=== PATIENT | male | born 2000 | race Hispanic/Latino ===

== ENCOUNTER 2022-05-23 04:17 | Inpatient (IN) | payer OTHER, SELFPAY ==
[2022-05-23 05:17] LABS: ALT (SGPT) 78 U/L (8-55); AST (SGOT) 120 U/L (5-34); Albumin 4.8 g/dL (3.5-5.0); Alkaline Phosphatase 110 U/L (40-110); Anion Gap 19 mmol/L (10-20); BUN (Urea Nitrogen) 11 mg/dL (8.9-20.6); Bilirubin, Total 0.4 mg/dL (0.2-1.2); Calc. Creatinine Clearance 0 mL/min (70-130); Calcium 8.8 mg/dL (7.8-10.44); Carbon Dioxide 16 mmol/L (22-29); Chloride 109 mmol/L (98-107); Estimated GFR 124; Globulin 3.4 g/dL (2.4-3.5); Glucose 132 mg/dL (70-105); Potassium 3.4 mmol/L (3.5-5.1); Protein, Total 8.2 g/dL (6.0-8.3); Sodium 141 mmol/L (136-145)
[2022-05-23 05:18] LABS: Acetaminophen Less than 10.0 mcg/mL (10.0-30.0); Alcohol 142 mg/dL (Less than 10); Salicylate Less than 8.0 mg/dL (15.0-30.0)
[2022-05-23 05:29] LABS: INR-International Normal Ratio 1.2
[2022-05-23 05:30] LABS: PTT 27.1 sec (22.9-36.1)
[2022-05-23 05:31] LABS: Band 22 % (5-11); Eosinophils 1 % (0-10); Hemoglobin 16.6 g/dL (14.0-18.0); Lymphocytes 14 % (21-51); MDiff Complete? YES; Mean Corpuscular Hemoglobin 32.3 pg (27.0-31.0); Mean Corpuscular Volume 92.3 fL (78.0-98.0); Mean Platelet Volume 6.7 fL (7.4-10.4); Monocytes 5 % (0-10); Neutrophil 57 % (42-75); Platelet Count 407 thou/uL (130-400); RBC Distribution Width 11.9 % (11.5-14.5); Red Blood Cell (RBC) Count 5.15 mill/uL (4.70-6.10); White Blood Cell (WBC) Count 20.6 thou/uL (4.8-10.8)
[2022-05-23] MEDS ORDERED: Dextrose 50% Abboject 50 ML SYRINGE SLOW IVP PRN (05:33)
[2022-05-23] MEDS ORDERED: Ondansetron PF 4 MG/2 ML Vial IVP PRN (05:33)
[2022-05-23] MEDS ORDERED: Ondansetron ODT 4 MG TAB PO PRN (05:33)
[2022-05-23] MEDS ORDERED: Dextrose 5% in Water 1,000 ML IV PRN (05:33)
[2022-05-23] MEDS ORDERED: hydrALAZINE 20 MG/ML VIAL SLOW IVP PRN (05:37)
[2022-05-23] MEDS ORDERED: Ventilator Sedation Protocol 1 EACH FS SCH (05:45)
[2022-05-23] MEDS ORDERED: Midazolam HCl 2 mg/2 ml Vial SLOW IVP PRN (05:48)
[2022-05-23] MEDS ORDERED: Propofol BOLUS 1,000 MG/100 ML VIAL IV PRN (06:00)
[2022-05-23] MEDS ORDERED: Morphine 4 MG/ML VIAL SLOW IVP PRN (06:00)
[2022-05-23] MEDS ORDERED: Propofol 1,000 MG/100 ML VIAL IV PRN (06:00)
[2022-05-23] MEDS ORDERED: Fentanyl BOLUS 250 ML IVPB PRN (06:00)
[2022-05-23] MEDS ORDERED: DISCONTINUE PREVIOUS NARCOTIC PAIN MEDICATIONS AND BENZODIAZEPINES FS SCH (06:00)
[2022-05-23] MEDS ORDERED: Fentanyl CADD 100 ML IV SCH (06:00)
[2022-05-23 06:06] LABS: Magnesium 1.9 mg/dL (1.6-2.6); Phosphorus 3.7 mg/dL (2.3-4.7)
[2022-05-23 06:25] LABS: Actual Bicarbonate (HCO3a) 16.2 mEq/L (22-28); Analyzer IN Cardio ER; CO2 Tension 37.3 mmHg (35.0-45.0); Calcium, Ionized (arterial) 1.16 mmol/L (1.12-1.30); Hemoglobin (Hb) 15.7 g/dL (14.0-18.0); O2 Tension (PaO2), arterial 423.6 mmHg (80.0-100.0); Potassium - ABG Lab 3.59 mmol/L (3.70-5.30); Puncture Site LRA; pH, Arterial 7.26 (7.35-7.45)
[2022-05-23 06:26] LABS: SARS-CoV-2 NAA Rapid Test Not Detected (NotDetected)
[2022-05-23 06:26] LABS: ALV-art Gradient 242.775 mmHg (0-20)
[2022-05-23] MEDS ORDERED: Fentanyl 100 MCG/2 ML VIAL ONE (06:41)
[2022-05-23 07:59] VITALS: BMI 22.3
[2022-05-23 08:00] LABS: Bacteria/HPF None Seen HPF (None Seen); Bilirubin Negative (Negative); Blood, Urine 2+ (Negative); Clarity Clear (Clear); Glucose, Urine (Dipstick) Normal (Negative); Ketone, Urine Negative (Negative); Leukocyte Negative Leu/uL (Negative); Nitrite Negative (Negative); Protein, Urine (Dipstick) Negative (Neg-Trace); RBC/HPF 0-3 HPF (0-3); Squamous Epithelial 0-3 HPF (0-3); Urobilinogen Normal mg/dL (Less than 2); WBC/HPF 0-3 HPF (0-3); pH, Urine 5.5 (5.0-9.0)
[2022-05-23 08:01] LABS: Specific Gravity, Urine 1.053 (1.002-1.036)
[2022-05-23 08:07] LABS: Amphetamine Not Detected (NotDetected); Barbiturates Screen Not Detected (NotDetected); Benzodiazepine Screen Not Detected (NotDetected); Cocaine Metabolite Screen Not Detected (NotDetected); Methadone Not Detected (NotDetected); Methamphetamine Not Detected (NotDetected); Opiate Screen Not Detected (NotDetected); Oxycodone Screen Not Detected (NotDetected); Phencyclidine (PCP) Not Detected (NotDetected); THC/Cannabinoid Screen Not Detected (NotDetected); Tricyclic Screen Not Detected (NotDetected)
[2022-05-23] MEDS: Famotidine/PF 20 mg/2ml Vial SLOW IVP SCH ×2 (08:14→20:04)
[2022-05-23] MEDS: Sodium Chloride 0.9% 1,000 ML IV SCH ×2 (08:16→17:02)
[2022-05-23] MEDS ORDERED: Iopamidol-370 76% 500 ML 1 ML ONE (09:43)
[2022-05-23] MEDS ORDERED: Cyclobenzaprine 10 MG TAB PO PRN (09:49)
[2022-05-23] MEDS ORDERED: Acetaminophen/Codeine 30-300mg Tablet PO PRN (09:50)
[2022-05-23] MEDS: Acetaminophen 325 MG TAB PO SCH ×2 (13:04→18:23)
[2022-05-23] MEDS: Senokot S 8.6-50 MG TAB PO SCH (20:01)
[2022-05-24] MEDS: Acetaminophen 325 MG TAB PO SCH ×4 (00:26→18:14)
[2022-05-24 05:59] LABS: #Basophils 0.1 thou/uL (0.0-0.2); #Lymphocytes 2.4 thou/uL (1.20-3.40); #Monocytes 1.2 thou/uL (0.11-0.59); #Neutrophils 8.3 thou/uL (1.40-6.50); %Basophils 0.6 % (0.0-1.0); %Eosinophils 0.3 % (0.0-10.0); %Monocytes 10.1 % (0.0-10.0); %Neutrophils 68.9 % (42.0-75.0); Hemoglobin 14.5 g/dL (14.0-18.0); Mean Corpuscular HGB CONC 34.9 g/dL (32.0-36.0); Mean Corpuscular Hemoglobin 33.1 pg (27.0-31.0); Mean Corpuscular Volume 94.9 fL (78.0-98.0); Mean Platelet Volume 6.6 fL (7.4-10.4); Platelet Count 293 thou/uL (130-400); RBC Distribution Width 11.6 % (11.5-14.5); Red Blood Cell (RBC) Count 4.39 mill/uL (4.70-6.10); White Blood Cell (WBC) Count 12.1 thou/uL (4.8-10.8)
[2022-05-24 06:24] LABS: Anion Gap 14 mmol/L (10-20); BUN (Urea Nitrogen) 12 mg/dL (8.9-20.6); Calc. Creatinine Clearance 142 mL/min (70-130); Calcium 8.8 mg/dL (7.8-10.44); Carbon Dioxide 22 mmol/L (22-29); Chloride 106 mmol/L (98-107); Estimated GFR 129; Glucose 107 mg/dL (70-105); Potassium 3.9 mmol/L (3.5-5.1); Sodium 138 mmol/L (136-145)
[2022-05-24] MEDS ORDERED: Sodium Phosphate 30 MMOL in Sodium Chloride 0.9% 250 ML 250 ML IVPB SCH (09:00)
[2022-05-24] MEDS: Acetaminophen/Codeine 30-300mg Tablet PO PRN ×2 (09:07→20:13)
[2022-05-24] MEDS: Famotidine/PF 20 mg/2ml Vial SLOW IVP SCH (09:07)
[2022-05-24] MEDS: Polyethylene Glycol 3350 17 GM Packet PO SCH (09:08)
[2022-05-24] MEDS: Senokot S 8.6-50 MG TAB PO SCH ×2 (09:08→20:14)
[2022-05-24] MEDS: Famotidine 20 MG TAB PO SCH (20:13)
[2022-05-25] MEDS: Acetaminophen 325 MG TAB PO SCH ×3 (00:37→13:12)
[2022-05-25 06:20] LABS: #Basophils 0.1 thou/uL (0.0-0.2); #Eosinphils 0.1 thou/uL (0.0-0.7); #Lymphocytes 2.4 thou/uL (1.20-3.40); #Monocytes 0.8 thou/uL (0.11-0.59); #Neutrophils 5.9 thou/uL (1.40-6.50); %Basophils 0.6 % (0.0-1.0); %Eosinophils 1.2 % (0.0-10.0); %Lymphocytes 25.7 % (21.0-51.0); %Monocytes 8.2 % (0.0-10.0); %Neutrophils 64.3 % (42.0-75.0); Mean Corpuscular HGB CONC 34.7 g/dL (32.0-36.0); Mean Corpuscular Hemoglobin 32.6 pg (27.0-31.0); Mean Corpuscular Volume 93.9 fL (78.0-98.0); Mean Platelet Volume 6.7 fL (7.4-10.4); Platelet Count 285 thou/uL (130-400); RBC Distribution Width 11.6 % (11.5-14.5); Red Blood Cell (RBC) Count 4.29 mill/uL (4.70-6.10); White Blood Cell (WBC) Count 9.2 thou/uL (4.8-10.8)
[2022-05-25] MEDS ORDERED: Enoxaparin Sodium 40 MG/0.4 ML SYRINGE SC SCH (09:00)
[2022-05-25] MEDS: Polyethylene Glycol 3350 17 GM Packet PO SCH (09:05)
[2022-05-25] MEDS: Famotidine 20 MG TAB PO SCH (09:05)
[2022-05-25] MEDS: Senokot S 8.6-50 MG TAB PO SCH (09:05)
[2022-05-25 12:48] VITALS: TEMP 98
[2022-05-25 13:16] VITALS: BP 145/92
== END 2022-05-25 15:29 | disposition home or self-care (01) | DRG 963 ==
LOC: ERS 04:33 → CCU 05:38 → SURG A 22:04
PROVIDERS: ADMIT Surgery; ATTEND Surgery
PROC: 0HQ0XZZ Repair Scalp Skin, External Approach (ICD-10-PCS; principal; 2022-05-23)
PROC: 5A1935Z Respiratory Ventilation, Less than 24 Consecutive Hours (ICD-10-PCS; 2022-05-23)
PROC: 0QS4XZZ Reposition Right Acetabulum, External Approach (ICD-10-PCS; 2022-05-23)
DX: S06.6X0A Traumatic subarachnoid hemorrhage without loss of consciousness, initial encounter (principal); S72.091A Other fracture of head and neck of right femur, initial encounter for closed fracture; J96.00 Acute respiratory failure, unspecified whether with hypoxia or hypercapnia; S32.421A Displaced fracture of posterior wall of right acetabulum, initial encounter for closed fracture; S22.079A Unspecified fracture of T9-T10 vertebra, initial encounter for closed fracture; S01.01XA Laceration without foreign body of scalp, initial encounter; S41.112A Laceration without foreign body of left upper arm, initial encounter; S42.112A Displaced fracture of body of scapula, left shoulder, initial encounter for closed fracture; F10.129 Alcohol abuse with intoxication, unspecified; Z20.822 Contact with and (suspected) exposure to COVID-19; V89.2XXA Person injured in unspecified motor-vehicle accident, traffic, initial encounter; Y92.9 Unspecified place or not applicable
CPT/HCPCS: 36415; 36600; 70450; 70486; 71045; 71260; 72125; 72170; 74177; 80048; 80053; 80306; 80307; 81003; 81015; 82805; 83735; 84100; 85025; 85610; 85730; 86850; 86900; 86901; 90471; 94002; 94003; 96365; 96366; 96374; 96375; 96376; 99292; G0390; J1650; J3010; J7050; Q9967; S0028; U0002